=== PATIENT | male | born 1935 | race Caucasian/White ===

== ENCOUNTER 2017-02-10 20:05 | Emergency (ER) | payer OTHER ==
[2017-02-10] MEDS ORDERED: IPRATROPIUM/ALBUTEROL SULFATE 3 ML NEB NEB ONE (20:15)
--- NOTE | 2017-02-10 20:16 | PDOC ---
Gen Adult / Medical Screen HPI - General Chief Complaint: General Medical Stated Complaint: Repeat blood work per outside physicians Date Seen by Provider: 02/10/17 Time Seen by Provider: 20:18 Source: POSITIVE: Patient, Spouse, RN/MD Exam Limitations: POSITIVE: No limitations Nurse's Notes Reviewed & Considered: Yes - Indicators Temperature Between 95 and 101 Degrees: Yes Respirations Between 12 and 20: Yes Blood Pressure Between 100-165 (sys) and 60-100 (armijo): Yes Severe Pain (Greater than 5/10 Reported): No Chest or Abdominal Pain: No Inability to Walk: No Pt Reports Active High Risk Cond. 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 Yesterday the patient was in [facility] and saw his primary care physician. He was having sore throat, congestion, cough, and shortness of breath. He was directed to the emergency room [facility] where CBC CMP and blood cultures as well as chest x-ray were obtained. White count was 10.24 with no left shift over 76% neutrophils present, comprehensive metabolic panel was normal, BNP was slightly elevated 262, chest x-ray showed no pneumonia present. Blood cultures were done and has come back positive today. Mrs. Steen, the practitioner in the emergency department contacted me this evening asking if I could see Mr. Joe and follow-up for his positive blood culture. The patient lives in [place] and it was 2 hours to get [place], only one hour to get to [place]. He was willing to come to [place] to be seeing. He was directed to come here and arrives for further evaluation. He has been without oxygen showing all day today and his oxygen saturations are in the low 90s. He denies any fevers chills or sweats, nausea vomiting or diarrhea, no abdominal pain, no rashes. Body Location Affected: REPORTS: Chest Timing: REPORTS: Gradual Duration: <1 week Similar Symptoms Previously: Yes Recent Care Received: REPORTS: Recently Seen, Treated by MD Any Prior Injuries Related to Current Complaint?: No - Patient Home Medications Home Medications: Home Medications Atorvastatin Calcium [Lipitor] 10 mg PO HS 03/20/13 Budesonide/Formoterol Fumarate [SYMBICORT] 2 inh IH BID 03/20/13 Esomeprazole Magnesium [Nexium] 20 mg PO DAILY 03/20/13 Tiotropium [place] [Spiriva] 18 mcg IH DAILY 03/20/13 Albuterol 17 gm IH PRN 02/10/17 Terbinafine [Lamisil At] 12 gm TP DAILY 02/10/17 - Patient Allergies Allergies/Adverse Reactions: Allergies Allergy/AdvReac Type Severity Reaction Status Date / Time Tetanus Vaccines and Toxoid Allergy Severe Anaphylaxis Verified 02/10/17 20:12 [Tetanus Vaccines & Toxoid] Past Medical History - heen HEENT History: Denies History Cardiovascular History: Hypertension Respiratory History: Asthma Gastrointestinal History: GERD Genitourinary History: Denies History Endocrine History: Denies History Musculoskeletal History: Rheumatoid Arthritis, Back Injury Prosthesis or Implant: Yes (MCKAY) Additional Musculoskeletal History: BACK SURGERY L 4-5. L TIBIA MCKAY. TOTAL RIGHT KNEE Neurological History: Denies History Blood Disorders: Denies History Psychiatric History: Denies History Cancer History: Denies History History of MDRO: No Alcohol Use: None Substance Use Type: None Previous Surgical History: Yes Anesthesia Reactions: No Significant Family History: No pertinent family hx ROS - Limitations ROS Limitations: No Limitations Constitution: REPORTS: Denies Symptoms Cardiovascular: REPORTS: Denies Cardiac Symptoms Respiratory: REPORTS: Cough Productive, Shortness Of Breath, Wheezing Neurological: REPORTS: Denies Neuro Symptoms Gastrointestinal: REPORTS: Denies GI Symptoms Endocrine: REPORTS: Denies Symptoms Musculoskeletal: REPORTS: Denies MS Symptoms Genitourinary: REPORTS: Denies Symptoms Eyes: REPORTS: Denies Symptoms ENT: REPORTS: Congestion, Nasal Drainage, Sore Throat Skin: REPORTS: Denies Skin Symptoms Lympathic: REPORTS: Denies Lympathic Symptoms Immunologic: POSITIVE: Denies Symptoms Psychiatric: POSITIVE: Denies Psych Symptoms Gen Adult/Medical Screen Exam - General Appearance General Appearance: POSITIVE: Alert, Cooperative, No Acute Distress, No Evidence of Trauma - HEENT HEENT: POSITIVE: Head Inspection Nml, Eyes Inspection Nml, Ears Inspection Nml, Nose Inspection Nml, PERRL, EOMI - Pupils Pupil Size: 5 mm: Bilateral - Neck Neck: POSITIVE: Normal Inspection, Thyroid Normal - Respiratory Respiratory: POSITIVE: No Respiratory Distress, Chest Non-Tender, Wheezes - Cardiovascular Cardiovascular: POSITIVE: Regular Rate & Rhythm, No Murmur, No Gallop, PMI Normal - Abdomen Abdomen: Soft: (All Quadrants), Normal Bowel Sounds: (All Quadrants), Denies Tenderness: (All Quadrants) - Back Back: POSITIVE: Normal Inspection - Neurological / Psychological Mental Status: POSITIVE: Mood Normal, Affect Normal Orientation: POSITIVE: Oriented x 3 - Skin Skin: POSITIVE: Normal Color, Warm, Dry, No Rash - Extremities Extremity: Non-Tender: (All Extremities), Normal ROM: (All Extremities), Normal Inspection: (All Extremities), Pelvis Stable: (All Extremities) Gen Adlt/Medical Scrn Progress - Results Reviewed by me Lab Results Reviewed: Yes Lab Results:: Laboratory Results 02/10/17 Range/Units 20:20 WBC 12.73 H (4.8-10.8) 10^3/uL RBC 4.65 L (4.70-6.10) 10^6/uL Hgb 15.3 (14.0-18.0) g/dL Hct 46.2 (42.0-52.0) % MCV 99.4 H (80-90) FL MCH 32.9 H (27-31) PG MCHC 33.1 (33-37) g/dL RDW Std Deviation 50.9 H (39-50) fL RDW Coeff of Liane 14.1 (11.5-14.5) % Plt Count 207 (140-350) 10*3/uL MPV 9.4 (7.4-12.2) FL Immature Gran % (Auto) 0.2 (0-5) % Neut % (Auto) 61.6 (50-80) % Lymph % (Auto) 21.8 (10-50) % [place] % (Auto) 15.0 (5-15) % Eos % (Auto) 1.0 (0-8) % Baso % (Auto) 0.4 (0-1) % Immature Gran # (Auto) 0.03 10*3/UL Neut # (Auto) 7.84 10*3/UL Lymph # (Auto) 2.77 10*3/uL [place] # (Auto) 1.91 H (0.3-0.8) 10*3/UL Eos # (Auto) 0.13 10*3/UL Baso # (Auto) 0.05 10*3/UL WBC Morphology Comment Normal morphology (NORM) Plt Morphology Comment Normal morphology (NORM) RBC Morph Comment Normal morphology (NORM) - Patient's Progress Re-Examine Time: 20:46 Status: POSITIVE: Improved MDM / ED Course: Patient was evaluated, blood drawn and sent to the lab for studies. He received a DuoNeb nebulizer treatment. Levaquin by mouth. Findings: CBC shows white count elevated to 12.5. Blood cultures are pending. Assessment: Bronchitis. Plan: Levaquin 500 mg by mouth daily for a total of 7 days. He is discharged home in improved condition. - Consult Counseled: POSITIVE: Patient, Family, RE: Lab Results, RE: DX, RE: Need for F/U Patient Care Time - Estimated PCT Patient Care Time (In Minutes): 20 Vital Signs - Recent Vital Signs Vital Signs: Vital Signs (Last 8 hours) Temp Pulse Resp BP Pulse Ox 02/10/17 20:05 97.6 F 71 18 120/83 91 - VS Reviewed Vital Signs Reviewed: Yes Discharge Clinical Impression: Bronchitis Discharge Disposition: Discharged to Home Condition: Stable Patient Instructions Given at Discharge: Acute Bronchitis (ED)
[2017-02-10 20:18] VITALS: RESP 18; TEMP 97.6
[2017-02-10 20:27] LABS: BASOPHILS # (AUTO) 0.05 10*3/UL; BASOPHILS % (AUTO) 0.4 % (0-1); EOSINOPHILS # (AUTO) 0.13 10*3/UL; HEMATOCRIT 46.2 % (42.0-52.0); HEMOGLOBIN 15.3 g/dL (14.0-18.0); LYMPHOCYTES # (AUTO) 2.77 10*3/uL; MEAN CORPUSCULAR HEMOGLOBIN 32.9 PG (27-31); MEAN CORPUSCULAR HGB CONC 33.1 g/dL (33-37); MEAN CORPUSCULAR VOLUME 99.4 FL (80-90); MEAN PLATELET VOLUME 9.4 FL (7.4-12.2); MONOCYTES # (AUTO) 1.91 10*3/UL (0.3-0.8); NEUTROPHILS # (AUTO) 7.84 10*3/UL; NEUTROPHILS % (AUTO) 61.6 % (50-80); RED BLOOD COUNT 4.65 10^6/uL (4.70-6.10)
[2017-02-10 20:33] LABS: PLATELET MORPHOLOGY COMMENT NORMAL MORPHOLOGY (NORM); RBC MORPHOLOGY COMMENT NORMAL MORPHOLOGY (NORM); WBC MORPHOLOGY COMMENT NORMAL MORPHOLOGY (NORM)
[2017-02-10] MEDS ORDERED: LEVOFLOXACIN 250 MG TABLET PO ONE (20:41)
== END 2017-02-10 21:01 | disposition home or self-care (01) ==
LOC: ER 20:05
DX: J20.9 Acute bronchitis, unspecified (principal); R06.02 Shortness of breath; R05 Cough; R06.2 Wheezing; J02.9 Acute pharyngitis, unspecified
CPT/HCPCS: 36415; 85025; 87040; 94640; 99283 ×2; J7620

== ENCOUNTER 2019-04-04 20:07 | Inpatient (IN) ==
[2019-04-04] MEDS ORDERED: ONDANSETRON 4 MG/2 ML VIAL IVP ONE (20:09)
[2019-04-04] MEDS ORDERED: Sodium Chloride 0.9% 1,000 ML PRIMARY IV ONE (20:09)
[2019-04-04] MEDS: IPRATROPIUM/ALBUTEROL SULFATE 3 ML NEB NEB ONE (20:10)
--- NOTE | 2019-04-04 20:22 | EKG ---
[address] [address] Measurements Intervals [place] Rate: 78 P: 46 MI: 155 QRS: -78 QRSD: 161 T: 17 QT: 407 QTc: 440 Interpretive Statements SINUS RHYTHM LEFT ANTERIOR BLOCK RIGHT BUNDLE BRANCH BLOCK Compared to ECG 07/25/2018 16:38:30 Left anterior hemiblock now present Right bundle-branch block now present Ventricular premature complex(es) no longer present ST (T wave) deviation no longer present Electronically Signed On 04-05-19 16:04:01 MDT by Ever Stout [email or web address]
[2019-04-04 20:27] LABS: VENOUS PH 7.47 (7.32-7.42)
--- NOTE | 2019-04-04 20:28 | PDOC ---
General Adult HPI - General Chief Complaint: Neurological Complaints Stated Complaint: WEAKNESS, FALL Date Seen by Provider: 04/04/19 Time Seen by Provider: 20:05 Source: POSITIVE: Patient Exam Limitations: POSITIVE: No limitations Nurse's Notes Reviewed & Considered: Yes - History of Present Illness Initial Comment: The patient is an 84-year-old male who presents to the emergency department by private vehicle with increased generalized weakness. His reports that he has not been feeling well for the past couple of days. She states that earlier this afternoon he was so weak that he could not walk on his own. She states that he took a nap and when she went to check on him this evening he could not even sit up in bed. When she tried to sit him up he actually fell forward and cut his left arm on the dresser. She subsequently brought him here to the emergency department for evaluation. He does have a history of COPD and takes various inhalers for that. In addition he does have a history of rheumatoid arthritis and takes methotrexate, he is due for his next dose tomorrow. He was seen here in the emergency department last week with complaints of sore throat and diagnosed with thrush. He was started on Diflucan which he is still on. His states that she thinks the Diflucan was making him sick as he has been sick to his stomach the last couple of days. He did complain of headache earlier this afternoon. Have you received a tetanus shot in the past 10 years?: No - Patient Home Medications Home Medications: Home Medications Atorvastatin Calcium [Lipitor] 10 mg PO HS 03/20/13 Budesonide/Formoterol Fumarate [SYMBICORT] 2 inh IH BID 03/20/13 Esomeprazole Magnesium [Nexium] 20 mg PO DAILY 03/20/13 Tiotropium [place] [Spiriva] 18 mcg IH DAILY 03/20/13 Albuterol 17 gm IH PRN 02/10/17 Terbinafine [Lamisil At] 12 gm TP DAILY 02/10/17 Fluconazole 100 mg PO DAILY #10 tab 03/27/19 Methotrexate 04/04/19 Prednisone 5 mg PO 04/04/19 - Patient Allergies Allergies/Adverse Reactions: Allergies Allergy/AdvReac Type Severity Reaction Status Date / Time Tetanus Vaccines and Toxoid Allergy Severe Anaphylaxis Verified 03/28/19 01:07 [Tetanus Vaccines & Toxoid] Past Medical History - heen HEENT History: Denies History Cardiovascular History: Hyperlipidemia Respiratory History: COPD Gastrointestinal History: GERD Genitourinary History: Denies History Endocrine History: Denies History Musculoskeletal History: Rheumatoid Arthritis, Back Injury Prosthesis or Implant: Yes (MCKAY) Additional Musculoskeletal History: BACK SURGERY L 4-5. L TIBIA MCKAY. TOTAL RIGHT KNEE Neurological History: Denies History Blood Disorders: Denies History Psychiatric History: Denies History History of Sexually Transmitted Diseases: No Cancer History: Denies History In Past Year Been Physically Harmed or Verbally Threatened: No History of MDRO: No History of Other Communicable Diseases: No Tobacco Use: Former Smoker Alcohol Use: None In the Past 12 Months, Have Used or Abuse Any Substance: None Previous Surgical History: Yes Type / Date of Surgery: R TKA, RIGHT SHOULDER, BACK SURGERY Anesthesia Reactions: No Significant Family History: No pertinent family hx Past Medical History Reviewed: Reviewed - No Changes ROS - Limitations ROS Limitations: Other (please comment) (Patient is hard of hearing) Constitution: REPORTS: Fever (He does have a temperature here of 101.7) Cardiovascular: DENIES: Chest Pain Respiratory: REPORTS: Other (He has a chronic cough) Neurological: REPORTS: Headache, Dizziness, Difficulty Walking, Other (Generalized weakness, no focal weakness in the extremities). DENIES: Seizure Activity Gastrointestinal: REPORTS: Nausea, Vomitting (1 on arrival). DENIES: Abdominal Pain Musculoskeletal: DENIES: Lower Extremity Swelling Genitourinary: REPORTS: Denies Symptoms Eyes: REPORTS: Denies Symptoms ENT: REPORTS: Sore Throat Skin: DENIES: Rash General Adult Exam - General Appearance General Appearance: POSITIVE: Other (The patient is awake and does follow commands, he does appear ill) - HEENT HEENT: POSITIVE: Head Inspection Nml, Eyes Inspection Nml, Ears Inspection Nml, Nose Inspection Nml, Dry Mucous Membranes - Neck Neck: POSITIVE: Normal Inspection. NEGATIVE: Lymphadenopathy - Respiratory Respiratory: POSITIVE: Other (Patient is tachypnea, coarse rhonchi with diminished breath sounds bilaterally) - Cardiovascular Cardiovascular: POSITIVE: Regular Rate & Rhythm, No Murmur Peripheral Pulses: Dorsalis-pedis (R): 2+, Dorsalis-pedis (L): 2+ - Abdomen Abdomen: Soft: (All Quadrants), Denies Tenderness: (All Quadrants), No Distention: (All Quadrants) - Skin Skin: POSITIVE: Normal Color, No Rash - Extremities Additional Extremities Details: He does have 2 fairly large skin tears on the left arm that are not actively bleeding - Neurological / Psychological Neurological: POSITIVE: Oriented X3, strap stitcher Normal As Tested, Motor Normal, Other (No focal neurologic deficits identified, 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 CTA of the chest shows no evidence of PE, early airspace disease in the left lower lobe and findings consistent with chronic bronchitis per radiologist. Lab Results Reviewed by Me: Yes Lab Results:: Laboratory Results 04/04/19 04/04/19 04/04/19 20:10 20:10 20:10 WBC 13.09 H RBC 4.38 L Hgb 14.2 Hct 43.2 MCV 98.6 H MCH 32.4 H MCHC 32.9 L RDW Std Deviation 53.7 H RDW Coeff of Liane 15.4 H Plt Count 198 MPV 9.3 Immature Gran % (Auto) 0.4 Neut % (Auto) 71.3 Lymph % (Auto) 16.1 [place] % (Auto) 11.8 Eos % (Auto) 0.2 Baso % (Auto) 0.2 Immature Gran # (Auto) 0.05 Neut # (Auto) 9.35 Lymph # (Auto) 2.11 [place] # (Auto) 1.54 H Eos # (Auto) 0.02 Baso # (Auto) 0.02 WBC Morphology Comment Normal morphology Plt Morphology Comment Normal morphology RBC Morph Comment Normal morphology D-Dimer 1678 H VBG pH VBG pCO2 VBG HCO3 VBG Base Excess Sodium 131 L Potassium 4.0 Chloride 98 Carbon Dioxide 24 Anion Gap 9 BUN 21 Creatinine 1.0 BUN/Creatinine Ratio 21.00 H Glucose 120 H Calculated Osmolality 275.0 Lactic Acid Calcium 9.4 Magnesium 2.0 Total Bilirubin 0.7 AST 33 ALT 27 Alkaline Phosphatase 77 Total Creatine Kinase 79 Troponin I C-Reactive Protein 1.6 H NT-Pro-B Natriuret Pep 1600 H Total Protein 6.6 Albumin 3.7 Globulin 2.9 Albumin/Globulin Ratio 1.20 L TSH 04/04/19 04/04/19 04/04/19 20:10 20:10 20:10 WBC RBC Hgb Hct MCV MCH MCHC RDW Std Deviation RDW Coeff of Liane Plt Count MPV Immature Gran % (Auto) Neut % (Auto) Lymph % (Auto) [place] % (Auto) Eos % (Auto) Baso % (Auto) Immature Gran # (Auto) Neut # (Auto) Lymph # (Auto) [place] # (Auto) Eos # (Auto) Baso # (Auto) WBC Morphology Comment Plt Morphology Comment RBC Morph Comment D-Dimer VBG pH VBG pCO2 VBG HCO3 VBG Base Excess Sodium Potassium Chloride Carbon Dioxide Anion Gap BUN Creatinine BUN/Creatinine Ratio Glucose Calculated Osmolality Lactic Acid 1.3 Calcium Magnesium Total Bilirubin AST ALT Alkaline Phosphatase Total Creatine Kinase Troponin I 0.030 C-Reactive Protein NT-Pro-B Natriuret Pep Total Protein Albumin Globulin Albumin/Globulin Ratio TSH 1.28 04/04/19 20:25 WBC RBC Hgb Hct MCV MCH MCHC RDW Std Deviation RDW Coeff of Liane Plt Count MPV Immature Gran % (Auto) Neut % (Auto) Lymph % (Auto) [place] % (Auto) Eos % (Auto) Baso % (Auto) Immature Gran # (Auto) Neut # (Auto) Lymph # (Auto) [place] # (Auto) Eos # (Auto) Baso # (Auto) WBC Morphology Comment Plt Morphology Comment RBC Morph Comment D-Dimer VBG pH 7.47 H VBG pCO2 36 L VBG HCO3 26 VBG Base Excess 2 Sodium Potassium Chloride Carbon Dioxide Anion Gap BUN Creatinine BUN/Creatinine Ratio Glucose Calculated Osmolality Lactic Acid Calcium Magnesium Total Bilirubin AST ALT Alkaline Phosphatase Total Creatine Kinase Troponin I C-Reactive Protein NT-Pro-B Natriuret Pep Total Protein Albumin Globulin Albumin/Globulin Ratio TSH CBC and BMP: 04/04/19 20:10 04/04/19 20:10 EKG Interpreted/Reviewed By Me:: Yes EKG Interpretation:: POSITIVE: Normal Sinus Rhythm, Normal Rate, Other (Right bundle branch block) - Patient's Progress MDM / ED Course: On arrival the patient was hypoxic with sats in the 80s. He also started vomiting. He was placed on O2 per mask to bring his sats into the high 90s. He is febrile with a temperature of 101.7. An IV was established, blood cultures as well as lactate and venous blood gas were obtained with initial IV start. He received a DuoNeb as well as Zofran 4 mg IV. He also received 1 L bolus of normal saline. EKG shows normal sinus rhythm with right bundle branch block. His venous blood gas reveals a pH of 7.46 with a PCO2 of 35. Blood work reveals a white count of 13 and a CRP of 1.6. His troponin is normal at 0.030, his BNP is elevated at 1600. Electrolytes are unremarkable except for slightly low sodium at 131. His lactate is normal at 1.3. D-dimer is elevated at 1600. Initial portable chest x-ray showed some questionable infiltrate in the left lower lobe. Subsequent CTA of the chest shows no evidence of PE, there is some early airspace disease in the left lower lobe as well as findings consistent with chronic bronchitis per radiologist. CT scan of the head shows no evidence of acute injury cranial abnormality. The patient did receive Tylenol 1 g IV and his temp came down to 99. The skin tears on his left arm were cleansed and repaired with Steri-Strips per nursing staff. He was weaned down to 4 L per nasal cannula to maintain his oxygen saturations in the mid 90s. He was given Rocephin 2 g IV Zithromax 500 mg IV for treatment of pneumonia. I did discuss current findings with the patient and his family. I also discussed the patient with Dr. Rhodes who has agreed to admit the patient for further care. - Consult Counseled: POSITIVE: Patient, Family, RE: Lab Results, RE: Radiology Results, RE: DX, RE: Need for F/U Patient Care Time - Estimated PCT Patient Care Time (In Minutes): 45 Vital Signs - Recent Vital Signs Vital Signs: Vital Signs (Last 8 hours) Temp Pulse Pulse Resp BP Pulse Ox 04/04/19 20:46 101.2 F H 78 94 38 H 151/90 81 04/04/19 20:11 79 40 H 100 04/04/19 20:10 80 40 H 93 - VS Reviewed Vital Signs Reviewed: Yes Discharge Clinical Impression: Pneumonia, Hypoxia, Dehydration, Generalized weakness, Skin tear of left upper extremity, COPD (chronic obstructive pulmonary disease) Discharge Disposition: Admit to Inpatient Condition: Fair Patient Problem(s) Reviewed: Yes Follow Up With: DEON RICO [Primary Care Provider] - Date Decision to Admit to Inpatient: 04/04/19 Time Decision to Admit to Inpatient: 22:05
[2019-04-04 20:33] LABS: BASOPHILS # (AUTO) 0.02 10*3/UL; BASOPHILS % (AUTO) 0.2 % (0-1); EOSINOPHILS # (AUTO) 0.02 10*3/UL; EOSINOPHILS % (AUTO) 0.2 % (0-8); Hematocrit [HCT] 43.2 % (42.0-52.0); Hemoglobin [HGB] 14.2 g/dL (14.0-18.0); LYMPHOCYTES # (AUTO) 2.11 10*3/uL; MEAN CORPUSCULAR HGB CONC 32.9 g/dL (33-37); MEAN CORPUSCULAR VOLUME 98.6 FL (80-90); MEAN PLATELET VOLUME 9.3 FL (7.4-12.2); MONOCYTES # (AUTO) 1.54 10*3/UL (0.3-0.8); MONOCYTES % (AUTO) 11.8 % (5-15); NEUTROPHILS # (AUTO) 9.35 10*3/UL; NEUTROPHILS % (AUTO) 71.3 % (50-80); RED BLOOD COUNT 4.38 10^6/uL (4.70-6.10)
[2019-04-04 20:35] LABS: BLOOD UREA NITROGEN 21 mg/dL (7-22); SERUM ALBUMIN 3.7 g/dL (3.5-4.8)
[2019-04-04 20:37] LABS: PLATELET MORPHOLOGY COMMENT NORMAL MORPHOLOGY (NORM); RBC MORPHOLOGY COMMENT NORMAL MORPHOLOGY (NORM); WBC MORPHOLOGY COMMENT NORMAL MORPHOLOGY (NORM)
[2019-04-04] MEDS ORDERED: Acetaminophen 1000mg Inj 1,000 MG/100 ML VIAL IV PRN (21:15)
--- NOTE | 2019-04-04 21:45 | DI ---
XR CXR 1VW,04/04/2019 8:12 PM: Clinical History: Hypoxia Previous Exam: None at this facility. Findings: A single frontal radiograph of the chest is obtained, and demonstrates clear lungs. The cardiomediast inum and bony thorax are unremarkable. There are mild degenerative changes of the shoulders. There is a density within the left costophrenic angle. Overlying EKG leads are seen. Impression: Density within the left costophrenic angle. Recommend CT chest for further evaluation.
--- NOTE | 2019-04-04 21:45 | DI ---
CT Head WO Contrast,04/04/2019 8:09 PM: Clinical History: Fall, headache and weakness. Previous Exam: July 25, 2018 Findings: Multiple helically acquired CT images are obtained through the brain without contrast, and demonstrat e diffuse age-related volume loss. There is no mass, hemorrhage nor midline shift. There is some thic kening of the mucoperiosteum in the right maxillary sinus. Impression: Diffuse age-related volume loss without acute intracranial pathology.
--- NOTE | 2019-04-04 21:51 | DI ---
CT CTA Chest Non-Coronary WWO,04/04/2019 8:40 PM: Clinical History: Hypoxia and elevated d-dimer. Previous Exam: October 20, 2008 Findings: Multiple helically acquired CT images are obtained through the chest with IV contrast as part of a CT angiogram protocol. There is some airspace disease within left lung base. There is mild bronchiectasis noted within both lung bases. There is a large hiatal hernia. The pulmonary arteries are normal without filling defect or truncation. The upper abdomen is unremarkable. There is a simple cyst noted in the dome of the liver. There is no mediastinal lymphadenopathy. Visualized portions of the thyroid are unremarkable. Degenerative changes of the thoracic spine are seen. Impression: 1. Mild airspace disease within the left lung base worrisome for an early pneumonia. There is bibasilar bronchiectasis which most likely represents chronic bronchitis. Correlate clinical ly. 2. Hiatal hernia.
[2019-04-04] MEDS ORDERED: cefTRIAXone Inj 2 GM in Sodium Chloride 0.9% 100 ML IV ONE (21:59)
[2019-04-04] MEDS ORDERED: Sodium Chloride 0.9% 250 ML ONE (22:06)
--- NOTE | 2019-04-04 23:10 | PDOC ---
HPI - History of Present Illness Date of Service: 04/04/19 Time of Service: 23:03 Chief Complaint: Not feeling well, confusion History of Present Illness: This very pleasant 84-year-old male with history of rheumatoid arthritis, on methotrexate and prednisone, immunocompromised status, COPD but not oxygen dependent, hypercholesterolemia, amongst other medical issues, who was brought in tonight by his family after he was weak, confused, had high fever and had a fall, with a scrape of his left arm as well as hitting his head. He is not on any blood thinners and his CT scan was negative in the emergency room for bleed in the head. His skin tear was dressed in the emergency room. He was found to have high fever, was breathing unlabored rate, but had preserved blood pressure and heart rate, and a normal lactic acid. Reportedly he coughs with phlegm production all the time. He wasn't feeling very well this morning. In the emergency room he vomited. He's not had pneumonia before, and he states to me that he is up-to-date with her Pneumovax vaccine and his daughter states that he got the flu vaccine this past season. The patient was oriented to person, but would intermittently not be able to answer questions because of confusion. He is not normally confused like this. 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 He recently had fluconazole for oral thrush that was felt related to his inhaled corticosteroid, but he developed diarrhea on this as well. Exacerbating factors were very difficult to ascertain due to the patient's confusion. He did deny any chest pain. Past Medical History Medical History: 1. Rheumatoid arthritis. 2. Hypercholesterolemia. 3. COPD Surgical History: 1. Prior shoulder surgery, and I knew this from the scar on the left side. Other surgical history is very difficult to obtain due to confusion Pertinent Family History: I cannot obtain this information due to confusion Past Social History: Smoked remotely. Does not currently smoke. . Has children. 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 Tobacco Use: Former Smoker In the Past 12 Months, Have Used or Abuse Any of the Following Substance: None Alcohol Use: None Medication / Allergies Home Medications: Home Medications Medication Instructions Recorded Confirmed Atorvastatin Calcium [Lipitor] 10 mg PO HS 03/20/13 04/04/19 Budesonide/Formoterol Fumarate 2 inh IH BID 03/20/13 04/04/19 [SYMBICORT] Esomeprazole Magnesium [Nexium] 20 mg PO DAILY 03/20/13 04/04/19 Tiotropium [place] [Spiriva] 18 mcg IH DAILY 03/20/13 04/04/19 Albuterol 17 gm IH PRN 02/10/17 04/04/19 Terbinafine [Lamisil At] 12 gm TP DAILY 02/10/17 04/04/19 Fluconazole 100 mg PO DAILY #10 tab 03/27/19 04/04/19 Methotrexate 04/04/19 Prednisone 5 mg PO 04/04/19 Allergies/Adverse Reactions: Allergies Allergy/AdvReac Type Severity Reaction Status Date / Time Tetanus Vaccines and Toxoid Allergy Severe Anaphylaxis Verified 03/28/19 01:07 [Tetanus Vaccines & Toxoid] Review of Systems - Review of Systems ROS Unobtainable: Due to Mental Status (Due to his confusion, I could not obtain a review of systems although the patient does deny chest pain. He had nausea and vomiting in the emergency room earlier) Exam - Vitals Vital Signs: Vital Signs Temperature 100.7 F Temperature Source Temporal Artery Scan Pulse Rate [Pulse Oximeter] 94 Pulse Rate 74 Respiratory Rate 28 Blood Pressure [Right Arm] 151/90 Blood Pressure 104/57 Pulse Ox 95 Oxygen Delivery Method Room Air Height 5 ft 11 in Weight 145 lb Selected Entries 04/04/19 20:11 04/04/19 20:46 Temperature 101.2 F H Pulse Rate [Pulse Oximeter] 94 Respiratory Rate 40 H 38 H Blood Pressure [Right Arm] 151/90 Pulse Ox 81 Oxygen Delivery Method Room Air - General General Appearance: Cooperative, Mild Distress, Thin Additional General Exam Details: Appears ill. Not septic or toxic, but confused. - Head Head Exam: Normocephalic, Ecchymosis (Forehead) - Eye Eye Exam: POSITIVE: No Scleral Icterus - ENT ENT Exam: POSITIVE: Mucous Membranes Moist - Neck Neck Exam: Normal Inspection, No Tenderness, No Lymphadenopathy, No Thyromegaly, JVP is not Raised - Respiratory Respiratory Exam: POSITIVE: Clear to Auscultation - Bilaterally, Breathing Non Labored, Decreased Breath Sounds, Crackles (Bilaterally in bases. Left greater than right.), Coarse Breath Sounds - Cardiovascular Cardiovascular Exam: POSITIVE: RRR, No Murmur, No Clicks, No Gallops, No Rubs, No JVD - GI/Abdominal GI/Abdominal Exam: POSITIVE: Normal Bowel Sounds, Non Tender, Non Distended, Soft - Rectal Rectal Exam: POSITIVE: Deferred - External Exam: POSITIVE: Deferred Exam: POSITIVE: Deferred - Extremities Extremities Exam: POSITIVE: No Clubbing Present, No Edema Present, No Cyanosis Present - Neurological Neurological Exam: POSITIVE: Alert, No Facial Droop, Speech Intact / Clear, Moves All Extremities Equally, Altered (Alert to person, not necessarily to place, time, or situation at this point.) - Integumentary Integumentary Exam: POSITIVE: Warm, Dry Additional Integumentary Exam Details: Had skin tear on left upper extremity, dressed. Results - Labs CBC and BMP: 04/04/19 20:10 04/04/19 20:10 Additional Lab Results: Laboratory Results 04/04/19 04/04/19 04/04/19 20:10 20:10 20:10 WBC 13.09 H RBC 4.38 L Hgb 14.2 Hct 43.2 MCV 98.6 H MCH 32.4 H MCHC 32.9 L RDW Std Deviation 53.7 H RDW Coeff of Liane 15.4 H Plt Count 198 MPV 9.3 Immature Gran % (Auto) 0.4 Neut % (Auto) 71.3 Lymph % (Auto) 16.1 [place] % (Auto) 11.8 Eos % (Auto) 0.2 Baso % (Auto) 0.2 Immature Gran # (Auto) 0.05 Neut # (Auto) 9.35 Lymph # (Auto) 2.11 [place] # (Auto) 1.54 H Eos # (Auto) 0.02 Baso # (Auto) 0.02 WBC Morphology Comment Normal morphology Plt Morphology Comment Normal morphology RBC Morph Comment Normal morphology D-Dimer 1678 H VBG pH VBG pCO2 VBG HCO3 VBG Base Excess Sodium 131 L Potassium 4.0 Chloride 98 Carbon Dioxide 24 Anion Gap 9 BUN 21 Creatinine 1.0 BUN/Creatinine Ratio 21.00 H Glucose 120 H Calculated Osmolality 275.0 Lactic Acid Calcium 9.4 Magnesium 2.0 Total Bilirubin 0.7 AST 33 ALT 27 Alkaline Phosphatase 77 Total Creatine Kinase 79 Troponin I C-Reactive Protein 1.6 H NT-Pro-B Natriuret Pep 1600 H Total Protein 6.6 Albumin 3.7 Globulin 2.9 Albumin/Globulin Ratio 1.20 L TSH 04/04/19 04/04/19 04/04/19 20:10 20:10 20:10 WBC RBC Hgb Hct MCV MCH MCHC RDW Std Deviation RDW Coeff of Liane Plt Count MPV Immature Gran % (Auto) Neut % (Auto) Lymph % (Auto) [place] % (Auto) Eos % (Auto) Baso % (Auto) Immature Gran # (Auto) Neut # (Auto) Lymph # (Auto) [place] # (Auto) Eos # (Auto) Baso # (Auto) WBC Morphology Comment Plt Morphology Comment RBC Morph Comment D-Dimer VBG pH VBG pCO2 VBG HCO3 VBG Base Excess Sodium Potassium Chloride Carbon Dioxide Anion Gap BUN Creatinine BUN/Creatinine Ratio Glucose Calculated Osmolality Lactic Acid 1.3 Calcium Magnesium Total Bilirubin AST ALT Alkaline Phosphatase Total Creatine Kinase Troponin I 0.030 C-Reactive Protein NT-Pro-B Natriuret Pep Total Protein Albumin Globulin Albumin/Globulin Ratio TSH 1.28 04/04/19 20:25 WBC RBC Hgb Hct MCV MCH MCHC RDW Std Deviation RDW Coeff of Liane Plt Count MPV Immature Gran % (Auto) Neut % (Auto) Lymph % (Auto) [place] % (Auto) Eos % (Auto) Baso % (Auto) Immature Gran # (Auto) Neut # (Auto) Lymph # (Auto) [place] # (Auto) Eos # (Auto) Baso # (Auto) WBC Morphology Comment Plt Morphology Comment RBC Morph Comment D-Dimer VBG pH 7.47 H VBG pCO2 36 L VBG HCO3 26 VBG Base Excess 2 Sodium Potassium Chloride Carbon Dioxide Anion Gap BUN Creatinine BUN/Creatinine Ratio Glucose Calculated Osmolality Lactic Acid Calcium Magnesium Total Bilirubin AST ALT Alkaline Phosphatase Total Creatine Kinase Troponin I C-Reactive Protein NT-Pro-B Natriuret Pep Total Protein Albumin Globulin Albumin/Globulin Ratio TSH - EKG Data -: EKG Interpreted by Me Rate: Normal EKG Shows Normal: Sinus Rhythm - EKG Data EKG Interpretation: Other (Right bundle branch block) - Imaging Status: Image Reviewed by Me (Chest x-ray, appeared okay on my view although in the left costophrenic angle there appears to be increased opacity which could be an early pneumonia. A CT scan of the chest on my view shows what appears to be some signs consistent with COPD and a left lower base infiltrate.) Assessment and Plan - Patient Problems (1) Pneumonia Current Visit: Yes Status: Acute Code(s): J18.9 - Pneumonia, unspecified organism Qualifiers: Pneumonia type: due to unspecified organism Laterality: left Lung location: lower lobe of lung Qualified Code(s): J18.1 - Lobar pneumonia, unspecified organism (2) Rheumatoid arthritis Current Visit: Yes Status: Acute Code(s): M06.9 - Rheumatoid arthritis, unspecified Qualifiers: Rheumatoid arthritis location: multiple sites Rheumatoid factor presence: unspecified presence Qualified Code(s): M06.9 - Rheumatoid arthritis, unspecified (3) Hypercholesterolemia Current Visit: Yes Status: Acute Code(s): E78.00 - Pure hypercholesterolemia, unspecified (4) COPD (chronic obstructive pulmonary disease) Current Visit: Yes Status: Acute Code(s): J44.9 - Chronic obstructive pulmonary disease, unspecified Qualifiers: COPD type: COPD with acute exacerbation Qualified Code(s): J44.1 - Chronic obstructive pulmonary disease with (acute) exacerbation (5) Immunocompromised Current Visit: Yes Status: Acute Code(s): D89.9 - Disorder involving the immune mechanism, unspecified - Assessment / Plan Additional Assessment/Plan Details: Admit patient. Antibiotics will be given IV Rocephin and Zithromax I will write for some breathing therapies including nebulized therapies if necessary. I will hold Spiriva and do dual nebs and albuterol in the hospital Oxygen as necessary to keep saturations greater than 91%. Respiratory therapy to evaluate. Vitamin C by mouth. We'll check a urinary antigen for strep pneumoniae. vaccine status reviewed and he is up-to-date for his Pneumovax status and had influenza vaccine this past season PSI score is 124 . Class IV pneumonia CURB-65 is 4 points, 27.8% 30 day mortality smoking status currently negative negative, so [smoking cessation not necessarily Repeat labs in a.m. CODE STATUS discussed, but this was with the patient's daughter as the patient is too confused to discuss at this point. not available at bedside. Daughter not aware of patient's wishes Blood cultures are pending. Telemetry monitoring for now. course of antibiotics will be minimum of 7 days, and will switch to oral antibiotics when effervesced for at least 48 hours I will consult the eICU to monitor with us as well. I do notice that the s ystolic pressure initially in the 150s is now to the 107 range. Bolus liter of normal saline and write for normal saline fluids. Given his lower weight, with another liter of IV fluids, we will be an early goal-directed therapy. He has peripheral access for now. Plan above discussed with patient and patient agreed. I certainly made no guarantees of outcome, and stated to the patient's daughter and son-in-law that the patient was quite ill and discuss potential mortality from pneumonia as we ll. They are aware of the risk of the disease, and seemed to understand that discussion.
[2019-04-04] MEDS ORDERED: LIDOCAINE W/ SODIUM BICARB 0.5 ML SYR SUBD PRN (23:11)
[2019-04-04] MEDS ORDERED: GUAIFENESIN 600 MG TABLET PO SCH (23:11)
[2019-04-04] MEDS ORDERED: cefTRIAXone Inj 2 GM in Sodium Chloride 0.9% 100 ML IV SCH (23:11)
[2019-04-04] MEDS ORDERED: ALBUTEROL SULFATE 2.5 MG/3 ML NEB PRN (23:11)
[2019-04-04] MEDS ORDERED: ATORVASTATIN 10 MG TABLET PO SCH (23:11)
[2019-04-04] MEDS ORDERED: METHOTREXATE PO SCH (23:11)
[2019-04-04] MEDS ORDERED: Sodium Chloride 0.9% 1,000 ML IV ONE (23:15)
[2019-04-04] MEDS ORDERED: LIDOCAINE HCL 2 % 10 ML JELLY URO-JECT TOPICAL PRN (23:15)
[2019-04-04] MEDS ORDERED: SODIUM CHLORIDE 0.9% IV ONE (23:22)
[2019-04-04] MEDS ORDERED: HYDROCORTISONE SOD SUCC IV ONE (23:22)
--- NOTE | 2019-04-04 23:23 | HOSP.PROG ---
CURB-65 Pneumonia Severity - - Confusion: Yes BUN greater than 19 mg/dL (>7 mmol/L): Yes Respiratory Rate 30 bpm or More: Yes Systolic BP < 90 mmHg or Diastolic BP 60 mmHg or less: No Age 65 or Older: Yes (admitted to floor, eICU consult, rocephin and zithromax, early goal directed therapy, given steroids, stress dose hydrocortisone.) CURB-65 Score: 4 30 Day Mortiality Risk: Severe Risk Group
[2019-04-04] MEDS: Sodium Chloride 0.9% 1,000 ML PRIMARY IV SCH (23:24)
--- NOTE | 2019-04-04 23:25 | HOSP.PSI ---
Pneumonia Severity Index - PSI Age: 84 Sex: Male Shelter Resident: No History of Neoplastic Disease: No History of Liver Disease: No History of Congestive Heart Failure: No History of Cerebrovascular Disease: No History of Renal Disease: No Altered Mental Status: Yes Respiratory Rate Greater Than 30: Yes Systolic Blood Pressure Less Than 90 mmHg: No Temperature Less Than 95F or Greater Than 103.8F: No Pulse Greater Than 124 bpm: No pH Less Than 7.35: No BUN Greater Than 29: No Sodium Less Than 130: No Glucose Greater Than 249: No Hematocrit Less Than 30%: No Partial Pressure of Oxygen Less Than 60 mmHg: No (see CURB-65 score) Pleural Effusion on Xray: No Total PSI Score: 124 PSI Risk: Moderate Risk (91-131) = Consider Inpatient Admission
[2019-04-04 23:34] LABS: BILIRUBIN,URINE NEGATIVE (NEG); CLARITY,URINE CLEAR (CLEAR); COLOR,URINE YELLOW (Y); GLUCOSE, URINE (UA) NEGATIVE (NEG); OCCULT BLOOD,URINE Trace-intact (NEG); PH,URINE 5.5 (5.0-8.5); PROTEIN,URINE NEGATIVE (NEG)
[2019-04-04 23:35] LABS: URINE SAMPLE TYPE CATH SPECIMEN
[2019-04-04 23:41] LABS: RBC,URINE 0-1 /hpf
[2019-04-04] MEDS ORDERED: HYDROCORTISONE 100 MG/2 ML ONE (23:41)
[2019-04-05 04:44] LABS: BASOPHILS # (AUTO) 0.02 10*3/UL; BASOPHILS % (AUTO) 0.1 % (0-1); EOSINOPHILS # (AUTO) 0 10*3/UL; EOSINOPHILS % (AUTO) 0 % (0-8); Hematocrit [HCT] 41.4 % (42.0-52.0); Hemoglobin [HGB] 13.6 g/dL (14.0-18.0); LYMPHOCYTES # (AUTO) 1.15 10*3/uL; MEAN CORPUSCULAR HGB CONC 32.9 g/dL (33-37); MEAN PLATELET VOLUME 9.7 FL (7.4-12.2); MONOCYTES # (AUTO) 1.45 10*3/UL (0.3-0.8); NEUTROPHILS # (AUTO) 15.35 10*3/UL; NEUTROPHILS % (AUTO) 85.2 % (50-80); RED BLOOD COUNT 4.14 10^6/uL (4.70-6.10)
[2019-04-05 04:50] LABS: BLOOD UREA NITROGEN 17 mg/dL (7-22); BUN/CREATININE RATIO 18.88 (6-20)
[2019-04-05 05:03] LABS: PLATELET MORPHOLOGY COMMENT NORMAL MORPHOLOGY (NORM); RBC MORPHOLOGY COMMENT NORMAL MORPHOLOGY (NORM); WBC MORPHOLOGY COMMENT NORMAL MORPHOLOGY (NORM)
[2019-04-05 06:31] VITALS: RESP 40
[2019-04-05] MEDS: IPRATROPIUM/ALBUTEROL SULFATE 3 ML NEB NEB ONE (06:36)
[2019-04-05] MEDS ORDERED: IPRATROPIUM/ALBUTEROL SULFATE 3 ML NEB NEB SCH (07:00)
[2019-04-05 07:04] VITALS: BP 132/75; TEMP 102.5
[2019-04-05] MEDS ORDERED: Esomeprazole DR 20mg Capsule PO SCH (08:00)
[2019-04-05] MEDS ORDERED: Acetaminophen 1000mg Inj 1,000 MG/100 ML VIAL IV PRN (08:29)
[2019-04-05] MEDS ORDERED: ASCORBIC ACID Chewable 500 MG TABLET PO SCH (09:00)
[2019-04-05] MEDS ORDERED: ENOXAPARIN SODIUM 40 MG/0.4 ML SYRINGE SUBCUT SCH (09:00)
[2019-04-05] MEDS: Sodium Chloride 0.9% 1,000 ML PRIMARY IV SCH (09:53)
[2019-04-05 10:25] LABS: ABG BASE EXCESS -5 MMOL/L (-2-2); ABG OXYGEN SATURATION 97 % (90-100); ABG PCO2 32 MMHG (34-38); ABG PO2 85 MMHG (65-75); ALLEN TEST yes; COLLECTION SITE left radial
[2019-04-05] MEDS ORDERED: SODIUM CHLORIDE 0.9% IV ONE (10:32)
[2019-04-05] MEDS ORDERED: HYDROCORTISONE SOD SUCC IV ONE (10:32)
[2019-04-05] MEDS ORDERED: Sodium Chloride 0.9% 1,000 ML PRIMARY IV ONE (10:32)
--- NOTE | 2019-04-05 10:47 | DCSUMMARY ---
Hospitalization Summary Admit Date: 04/04/2019 Discharge Date: 04/05/19 Primary Diagnosis:: pneumonia with sepsis Hospital Course: Very pleasant 84-year-old male with rheumatoid arthritis, COPD, though not oxygen dependent, and hypothyroidism who presented with fever, altered mental status and confusion, and findings consistent with a left basilar pneumonia. It was better seen on CT scan the chest x-ray. Urinalysis is negative. Blood cultures are still pending at this time. The patient was admitted, placed on Rocephin and Zithromax, oxygen, breathing therapies, however his blood pressures up and steadily dropping and now systolic pressures are in the 105 range. He had a lower blood pressure last night for which we gave him stress dose steroids given his history, and his blood pressure stabilized with that and fluid bolus, but given signs of sepsis, high scores in curb65, and port score, I think this patient would be better served by potential infectious disease consultation for antibiotic selection and coverage, as well as possibly pulmonology if necessary. His blood pressures are low enough that I'm very concerned about sending him directly to the floor and he spoke with emergency room physician, Dr. Acharya. She graciously agreed to accept the patient at [facility]. I spoke with the family at length about risks and benefits of continuing treatment here, and they agreed with the transfers well. I did speak with the family regarding CODE STATUS. The patient's states that she may be leaning towards a DO NOT RESUSCITATE status, but final decisions have not been made. I spoke about the risks and benefits of CPR, and also make sure that the family understood the differentiation between a decision regarding CPR versus a decision regarding treatment. At this point we are treating this pneumonia as aggressively as we possibly can. Given the high fevers, continued confusion, lowering blood pressure, patient has an infectious source and is septic at this time. He does have a slight increase in his lactic acid from 1.3-1.6. He appears to be oxygenating okay based on his arterial blood gas, with a PaO2 of 85, normal pH of 7.40, but his bicarbonate is low at about 17. The patient feels that he is breathing okay, but he is very confused and has no idea where he is at or why he is here. He is able to answer yes and no questions. He is able to follow basic simple commands. Assessment and Plan: 1. As per discharge assessments noted 2. Disposition: Patient is discharged to [facility] 3. Condition on discharge, stabilized to the best of her ability, but obviously given condition, he could deteriorate in route. 4. Diet: For now, I will keep him nothing by mouth 5. Activities: Per physicians at [facility] 6. Follow-Up: 1. Dr. Rico in [place], post discharge. 2. 7. Medications at the Time of Discharge: Active Medications Generic Name Dose Route Start Last Admin Trade Name Freq PRN Reason Stop Dose Admin Albuterol Sulfate 2.5 mg 04/04/19 23:11 Albuterol Neb Soln 0.083% NEB RTQID PRN Shortness of Breath Albuterol/Ipratropium 3 ml 04/05/19 07:00 04/05/19 06:21 Duoneb Neb Soln NEB 3 ml RTQID MARILEE Administration Ascorbic Acid 1,000 mg 04/05/19 09:00 04/05/19 09:10 Vitamin C PO Not Given DAILY MARILEE Atorvastatin Calcium 10 mg 04/04/19 23:11 04/04/19 23:46 Lipitor PO 10 mg BEDTIME MARILEE Administration Enoxaparin Sodium 40 mg 04/05/19 09:00 04/05/19 09:14 Lovenox Inj SUBCUT 40 mg DAILY MARILEE Administration Esomeprazole Magnesium 20 mg 04/05/19 08:00 04/05/19 09:10 Nexium PO Not Given 0800 MARILEE Guaifenesin 600 mg 04/04/19 23:11 04/04/19 23:46 Mucinex Er Tab PO 600 mg Q12H MARILEE Administration Azithromycin 500 mg/ Sodium 250 mls @ 250 mls/hr 04/04/19 23:00 04/04/19 23:40 Chloride IV Not Given Q24H MARILEE Ceftriaxone Sodium 2 gm/ 100 mls @ 200 mls/hr 04/04/19 23:11 04/04/19 23:43 Sodium Chloride IV Not Given Q24H MARILEE Sodium Chloride 25 mls @ 200 mls/hr 04/04/19 23:11 Normal Saline 0.9% IV .Post Infusion PRN No Primary IV for Flush ONLY Sodium Chloride 1,000 mls @ 125 mls/hr 04/04/19 23:30 04/05/19 09:53 Normal Saline PRIMARY IV 125 mls/hr .Q8H MARILEE Administration Acetaminophen 1,000 mg in 100 mls @ 400 mls/hr 04/05/19 08:29 04/05/19 09:13 Ofirmev 1000mg Inj IV 400 mls/hr Q6H PRN Administration Pain Sodium Chloride 1,000 mls @ 999 mls/hr 04/05/19 10:32 Normal Saline PRIMARY IV 04/05/19 11:32 .Q1H1M ONE Hydrocortisone Sodium 102 mls @ 100 mls/hr 04/05/19 10:32 Succinate 100 mg/ Sodium IV 04/05/19 11:33 Chloride ONCE ONE Lidocaine HCl 0.5 ml 04/04/19 23:11 Lidocaine Buffered Inj SUBD ONCE PRN IV Starts Lidocaine HCl 10 ml 04/04/19 23:15 Xylocaine Uro-Ject 2% TOPICAL ONCE PRN Discomfort catheter insertion Non-Formulary Medication 1 tab 04/04/19 23:11 Methotrexate PO WEEKLY MARILEE 8. Time, care, counseling and coordination of care for this discharge is greater than 30 minutes. Exam - Vitals Vital Signs: Vital Signs Temperature 102.5 F Temperature Source Axillary Pulse Rate [Telemetry] 85 Pulse Rate [Pulse Oximeter] 69 Pulse Rate [left index finger] 71 Pulse Rate 83 Respiratory Rate 40 Blood Pressure 104/57 Pulse Ox [left index finger] 95 Pulse Ox 93 Oxygen Flow Rate [left index 3 finger] Oxygen Flow Rate 2 Oxygen Delivery Method [left Vapotherm index finger] Oxygen Delivery Method Oxymask Height 5 ft 11 in Weight 145 lb - General General Appearance: Cooperative - Eye Eye Exam: POSITIVE: No Scleral Icterus - ENT ENT Exam: POSITIVE: Mucous Membranes Moist - Neck Neck Exam: JVP is not Raised - Respiratory Respiratory Exam: POSITIVE: Breathing Non Labored, Decreased Breath Sounds, Crackles, Coarse Breath Sounds - Cardiovascular Cardiovascular Exam: POSITIVE: RRR, No Murmur, No Clicks, No Gallops, No Rubs, No JVD - GI/Abdominal GI/Abdominal Exam: POSITIVE: Normal Bowel Sounds, Non Tender, Non Distended, Soft - Extremities Extremities Exam: POSITIVE: No Clubbing Present, No Edema Present, No Cyanosis Present - Neurological Neurological Exam: POSITIVE: Alert, No Facial Droop, Speech Intact / Clear, Moves All Extremities Equally, Altered Data Peritnent Studies: Laboratory Results 04/04/19 04/04/1904/04/19 20:10 20:10 20:10 WBC 13.09 H RBC 4.38 L Hgb 14.2 Hct 43.2 MCV 98.6 H MCH 32.4 H MCHC 32.9 L RDW Std Deviation 53.7 H RDW Coeff of Liane 15.4 H Plt Count 198 MPV 9.3 Immature Gran % (Auto) 0.4 Neut % (Auto) 71.3 Lymph % (Auto) 16.1 [place] % (Auto) 11.8 Eos % (Auto) 0.2 Baso % (Auto) 0.2 Immature Gran # (Auto) 0.05 Neut # (Auto) 9.35 Lymph # (Auto) 2.11 [place] # (Auto) 1.54 H Eos # (Auto) 0.02 Baso # (Auto) 0.02 WBC Morphology Comment Normal morphology Plt Morphology Comment Normal morphology RBC Morph Comment Normal morphology D-Dimer 1678 H ABG pH ABG pCO2 ABG pO2 ABG HCO3 ABG Total CO2 ABG O2 Saturation ABG Base Excess Robert Test VBG pH VBG pCO2 VBG HCO3 VBG Base Excess FiO2 Sodium 131 L Potassium 4.0 Chloride 98 Carbon Dioxide 24 Anion Gap 9 BUN 21 Creatinine 1.0 BUN/Creatinine Ratio 21.00 H Glucose 120 H Calculated Osmolality 275.0 Lactic Acid Calcium 9.4 Magnesium 2.0 Total Bilirubin 0.7 AST 33 ALT 27 Alkaline Phosphatase 77 Total Creatine Kinase 79 Troponin I C-Reactive Protein 1.6 H NT-Pro-B Natriuret Pep 1600 H Total Protein 6.6 Albumin 3.7 Globulin 2.9 Albumin/Globulin Ratio 1.20 L TSH Ur Collection Type Urine Color Urine Clarity Urine pH Ur Specific [place] Urine Protein Urine Glucose (UA) Urine Ketones Urine Occult Blood Urine Nitrate Urine Bilirubin Urine Urobilinogen Ur Leukocyte Esterase Urine RBC Urine WBC Ur Squamous Epith Cells Ur Renal Epithelial Cell Urine Crystals Urine Bacteria Urine Casts Urine Mucus Urine Trichomonas Urine Yeast Ur Culture Indicated? Ur Strep pneumoniae Ag 04/04/19 04/04/19 04/04/19 20:10 20:10 20:10 WBC RBC Hgb Hct MCV MCH MCHC RDW Std Deviation RDW Coeff of Liane Plt Count MPV Immature Gran % (Auto) Neut % (Auto) Lymph % (Auto) [place] % (Auto) Eos % (Auto) Baso % (Auto) Immature Gran # (Auto) Neut # (Auto) Lymph # (Auto) [place] # (Auto) Eos # (Auto) Baso # (Auto) WBC Morphology Comment Plt Morphology Comment RBC Morph Comment D-Dimer ABG pH ABG pCO2 ABG pO2 ABG HCO3 ABG Total CO2 ABG O2 Saturation ABG Base Excess Robert Test VBG pH VBG pCO2 VBG HCO3 VBG Base Excess FiO2 Sodium Potassium Chloride Carbon Dioxide Anion Gap BUN Creatinine BUN/Creatinine Ratio Glucose Calculated Osmolality Lactic Acid 1.3 Calcium Magnesium Total Bilirubin AST ALT Alkaline Phosphatase Total Creatine Kinase Troponin I 0.030 C-Reactive Protein NT-Pro-B Natriuret Pep Total Protein Albumin Globulin Albumin/Globulin Ratio TSH 1.28 Ur Collection Type Urine Color Urine Clarity Urine pH Ur Specific [place] Urine Protein Urine Glucose (UA) Urine Ketones Urine Occult Blood Urine Nitrate Urine Bilirubin Urine Urobilinogen Ur Leukocyte Esterase Urine RBC Urine WBC Ur Squamous Epith Cells Ur Renal Epithelial Cell Urine Crystals Urine Bacteria Urine Casts Urine Mucus Urine Trichomonas Urine Yeast Ur Culture Indicated? Ur Strep pneumoniae Ag 04/04/19 04/04/19 04/04/19 20:25 23:34 23:34 WBC RBC Hgb Hct MCV MCH MCHC RDW Std Deviation RDW Coeff of Liane Plt Count MPV Immature Gran % (Auto) Neut % (Auto) Lymph % (Auto) [place] % (Auto) Eos % (Auto) Baso % (Auto) Immature Gran # (Auto) Neut # (Auto) Lymph # (Auto) [place] # (Auto) Eos # (Auto) Baso # (Auto) WBC Morphology Comment Plt Morphology Comment RBC Morph Comment D-Dimer ABG pH ABG pCO2 ABG pO2 ABG HCO3 ABG Total CO2 ABG O2 Saturation ABG Base Excess Robert Test VBG pH 7.47 H VBG pCO2 36 L VBG HCO3 26 VBG Base Excess 2 FiO2 Sodium Potassium Chloride Carbon Dioxide Anion Gap BUN Creatinine BUN/Creatinine Ratio Glucose Calculated Osmolality Lactic Acid Calcium Magnesium Total Bilirubin AST ALT Alkaline Phosphatase Total Creatine Kinase Troponin I C-Reactive Protein NT-Pro-B Natriuret Pep Total Protein Albumin Globulin Albumin/Globulin Ratio TSH Ur Collection Type Cath specimen Urine Color Yellow Urine Clarity Clear Urine pH 5.5 Ur Specific [place] 1.010 Urine Protein Negative Urine Glucose (UA) Negative Urine Ketones 15 Urine Occult Blood Trace-intact H Urine Nitrate Negative Urine Bilirubin Negative Urine Urobilinogen 1.0 Ur Leukocyte Esterase Negative Urine RBC 0-1 Urine WBC None Ur Squamous Epith Cells None Ur Renal Epithelial Cell None Urine Crystals None Urine Bacteria None Urine Casts None Urine Mucus None Urine Trichomonas None Urine Yeast None Ur Culture Indicated? Culture not set Ur Strep pneumoniae Ag Negative 04/05/19 04/05/19 04/05/19 04:09 04:09 04:35 WBC 18.02 H RBC 4.14 L Hgb 13.6 L Hct 41.4 L MCV 100.0 H MCH 32.9 H MCHC 32.9 L RDW Std Deviation 53.9 H RDW Coeff of Liane 15.5 H Plt Count 162 MPV 9.7 Immature Gran % (Auto) 0.3 Neut % (Auto) 85.2 H Lymph % (Auto) 6.4 L [place] % (Auto) 8.0 Eos % (Auto) 0 Baso % (Auto) 0.1 Immature Gran # (Auto) 0.05 Neut # (Auto) 15.35 Lymph # (Auto) 1.15 [place] # (Auto) 1.45 H Eos # (Auto) 0 Baso # (Auto) 0.02 WBC Morphology Comment Normal morphology Plt Morphology Comment Normal morphology RBC Morph Comment Normal morphology D-Dimer ABG pH ABG pCO2 ABG pO2 ABG HCO3 ABG Total CO2 ABG O2 Saturation ABG Base Excess Robert Test VBG pH VBG pCO2 VBG HCO3 VBG Base Excess FiO2 Sodium 132 L Potassium 4.2 Chloride 100 Carbon Dioxide 24 Anion Gap 8 BUN 17 Creatinine 0.9 BUN/Creatinine Ratio 18.88 Glucose 123 H Calculated Osmolality 276.0 Lactic Acid 1.6 Calcium 8.4 L Magnesium Total Bilirubin AST ALT Alkaline Phosphatase Total Creatine Kinase Troponin I C-Reactive Protein NT-Pro-B Natriuret Pep Total Protein Albumin Globulin Albumin/Globulin Ratio TSH Ur Collection Type Urine Color Urine Clarity Urine pH Ur Specific [place] Urine Protein Urine Glucose (UA) Urine Ketones Urine Occult Blood Urine Nitrate Urine Bilirubin Urine Urobilinogen Ur Leukocyte Esterase Urine RBC Urine WBC Ur Squamous Epith Cells Ur Renal Epithelial Cell Urine Crystals Urine Bacteria Urine Casts Urine Mucus Urine Trichomonas Urine Yeast Ur Culture Indicated? Ur Strep pneumoniae Ag 04/05/19 10:19 WBC RBC Hgb Hct MCV MCH MCHC RDW Std Deviation RDW Coeff of Liane Plt Count MPV Immature Gran % (Auto) Neut % (Auto) Lymph % (Auto) [place] % (Auto) Eos % (Auto) Baso % (Auto) Immature Gran # (Auto) Neut # (Auto) Lymph # (Auto) [place] # (Auto) Eos # (Auto) Baso # (Auto) WBC Morphology Comment Plt Morphology Comment RBC Morph Comment D-Dimer ABG pH 7.40 ABG pCO2 32 L ABG pO2 85 H ABG HCO3 20 L ABG Total CO2 21 L ABG O2 Saturation 97 ABG Base Excess -5 L Robert Test yes VBG pH VBG pCO2 VBG HCO3 VBG Base Excess FiO2 .35 Sodium Potassium Chloride Carbon Dioxide Anion Gap BUN Creatinine BUN/Creatinine Ratio Glucose Calculated Osmolality Lactic Acid Calcium Magnesium Total Bilirubin AST ALT Alkaline Phosphatase Total Creatine Kinase Troponin I C-Reactive Protein NT-Pro-B Natriuret Pep Total Protein Albumin Globulin Albumin/Globulin Ratio TSH Ur Collection Type Urine Color Urine Clarity Urine pH Ur Specific [place] Urine Protein Urine Glucose (UA) Urine Ketones Urine Occult Blood Urine Nitrate Urine Bilirubin Urine Urobilinogen Ur Leukocyte Esterase Urine RBC Urine WBC Ur Squamous Epith Cells Ur Renal Epithelial Cell Urine Crystals Urine Bacteria Urine Casts Urine Mucus Urine Trichomonas Urine Yeast Ur Culture Indicated? Ur Strep pneumoniae Ag Procedures: [address] [facility] [place] [address] PH: DD: [phone] FAX: [phone] ~DIAGNOSTIC IMAGING REPORT~ ------ Patient: SONAL MORA : 1935 Sex: M Age: 84 Exam Name: CT CTA Chest Non-Coronary [facility] Exam Date: 04/04/19 Report # : [id number] CPT Code: 52181 EMR/MR #: [id number] Ordering: EDWIN ALANIZ Admiting: Primary: DEON RICO MD. Attending: Signed CT CTA Chest Non-Coronary WWO,04/04/2019 8:40 PM: Clinical History: Hypoxia and elevated d-dimer. Previous Exam: October 20, 2008 Findings: Multiple helically acquired CT images are obtained through the chest with IV contrast as part of a CT angiogram protocol. There is some airspace disease within left lung base. There is mild bronchiectasis noted within both lung bases. There is a large hiatal hernia. The pulmonary arteries are normal without filling defect or truncation. The upper abdomen is unremarkable. There is a simple cyst noted in the dome of the liver. There is no mediastinal lymphadenopathy. Visualized portions of the thyroid are unremarkable. Degenerative changes of the thoracic spine are seen. Impression: 1. Mild airspace disease within the left lung base worrisome for an early pneumonia. There is bibasilar bronchiectasis which most likely represents chronic bronchitis. Correlate clinically. 2. Hiatal hernia. Dictated By: 04/04/19 2141 DAVY KAMARA MD. Signed By: 04/04/19 2151 DAVY KAMARA MD. Patient Problems - Patient Problem List (1) Sepsis Current Visit: Yes Status: Acute Code(s): A41.9 - Sepsis, unspecified organism Qualifiers: Sepsis type: sepsis due to unspecified organism Qualified Code(s): A41.9 - Sepsis, unspecified organism Category: Medical (2) Pneumonia Current Visit: Yes Status: Acute Code(s): J18.9 - Pneumonia, unspecified organism Qualifiers: Pneumonia type: due to unspecified organism Laterality: left Lung location: lower lobe of lung Qualified Code(s): J18.1 - Lobar pneumonia, unspecified organism Category: Medical (3) Rheumatoid arthritis Current Visit: Yes Status: Acute Code(s): M06.9 - Rheumatoid arthritis, unsp ecified Qualifiers: Rheumatoid arthritis location: multiple sites Rheumatoid factor presence: unspecified presence Qualified Code(s): M06.9 - Rheumatoid arthritis, unspecified Category: Medical (4) Hypercholesterolemia Current Visit: Yes Status: Acute Code(s): E78.00 - Pure hypercholesterolemia, unspecified Category: Medical (5) COPD (chronic obstructive pulmonary disease) Current Visit: Yes Status: Acute Code(s): J44.9 - Chronic obstructive pulmonary disease, unspecified Qualifiers: COPD type: COPD with acute exacerbation Qualified Code(s): J44.1 - Chronic obstructive pulmonary disease with (acute) exacerbation Category: Medical (6) Immunocompromised Current Visit: Yes Status: Acute Code(s): D89.9 - Disorder involving the immune mechanism, unspecified Category: Medical (7) Sepsis associated hypotension Current Visit: Yes Status: Acute Code(s): A41.9 - Sepsis, unspecified organism; I95.9 - Hypotension, unspecified Category: Medical (8) Altered mental status Current Visit: Yes Status: Acute Code(s): R41.82 - Altered mental status, unspecified Qualifiers: Altered mental status type: disorientation Qualified Code(s): R41.0 - Disorientation, unspecified Category: Medical
[2019-04-05 11:06] VITALS: O2SAT 95
[2019-04-05] MEDS ORDERED: Acetaminophen 1000mg Inj 1,000 MG/100 ML VIAL IV ONE (13:51)
== END 2019-04-05 11:26 | disposition short-term general hospital (02) | DRG 193 ==
LOC: ER 20:07 → MED/SURG 22:07
PROVIDERS: ADMIT Family Medicine; ATTEND Family Medicine